=== PATIENT | male | born 1980 | race Caucasian/White ===

== ENCOUNTER 2021-04-09 08:10 | Outpatient (CLI) | payer OTHER, SELFPAY ==
[2021-04-09 08:56] LABS: Basophils Absolute Auto 0.1 K/mm3 (0.0-0.1); Basophils Percent Auto 0.7 % (0.2-1.2); Eosinophils Absolute Auto 0.3 K/mm3 (0-0.3); Hematocrit 47.6 % (42.0-52.0); Hemoglobin 16.2 g/dL (14.0-18.0); Immature Granulocyte Absolute 0.01 K/mm3 (0.00-0.031); Immature Granulocyte Percent A 0.1 % (0-0.5); Lymphocytes Absolute Auto 3.01 K/mm3 (0.9-3.2); Lymphocytes Percent Auto 41.1 % (18.3-44.2); Mean Corpuscular Hemoglobin 29.6 pg (26-34); Mean Corpuscular Volume 86.9 fl (80-100); Mean Platelet Volume 10.4 fl (7.4-10.4); Monocytes Absolute Auto 0.6 K/mm3 (0.1-0.6); Monocytes Percent Auto 8.6 % (2.6-8.5); Neutrophils Absolute Auto 3.3 K/mm3 (1.3-6.7); Neutrophils Percent Auto 45.5 % (45.5-73.1); Platelet Count Result 251 k/mm3 (150-375); Red Blood Count 5.48 M/mm3 (4.6-6.20); Red Cell Distribution Width 12.9 % (11.5-14.5); White Blood Count 7.3 K/mm3 (4.5-10.0)
[2021-04-09 09:15] LABS: Alanine Aminotransferase 60 U/L (4-50); Albumin Level 4.5 g/dL (3.5-5.1); Alkaline Phosphatase 96 U/L (38-126); Anion Gap 12 mmol/L (8-16); Aspartate Amino Transferase 35 U/L (17-59); Bilirubin,Total 1.1 mg/dL (0.2-1.3); Blood Urea Nitrogen 16 mg/dL (9-20); Calcium 9.3 mg/dL (8.4-10.2); Carbon Dioxide 25 mmol/L (22-30); Chloride 103 mmol/L (98-107); Cholesterol 264 mg/dL (0-200); Estimated Glomerular Filt Rate > 60; Glucose 100 mg/dL (75-110); HDL Direct 58 mg/dL; Sodium 140 mmol/L (137-145); Triglycerides 112 mg/dL (<150)
[2021-04-09 09:26] LABS: LDL Cholesterol Direct 140 mg/dL
== END 2021-04-09 08:11 | disposition home or self-care (01) ==
LOC: ANHLAB 08:13
PROVIDERS: PCP Family Medicine; Visit Provider Family Medicine
DX: E78.5 Hyperlipidemia, unspecified (principal); I10 Essential (primary) hypertension; R53.83 Other fatigue
CPT/HCPCS: 36415; 80053; 80061; 84443; 85025

== ENCOUNTER 2023-05-12 13:21 | Emergency (ER) | payer OTHER, SELFPAY ==
--- NOTE | 2023-05-12 13:26 | ED.EYEPROB ---
HPI - Eye Problem General Stated complaint: right eye irritation Time Seen by Provider: 05/12/23 13:26 Source: patient Mode of arrival: ambulatory Limitations: no limitations History of Present Illness HPI Narrative: Patient is a 42-year-old male who presents with right eye irritation that started 1 week ago. Per patient noticed bump on white part of his eye today waking up. Patient denies any pain but does report it is very irritated and causes his eyes to water. Denies any trauma or obvious foreign body in eye. Has not taken anything for symptoms or used any eyedrops. Related Data Home Medications Medication Instructions Recorded Confirmed amlodipine 5 mg tablet mg 05/12/23 Allergies Allergy/AdvReac Type Severity Reaction Status Date / Time shellfish derived Allergy Anaphylaxis Verified 05/12/23 13:43 Review of Systems Review of Systems: All systems reviewed & are unremarkable except as noted in HPI and below Constitutional: Constitutional: Denies body ache(s), Denies fever(s), Denies headache(s), Denies malaise and Denies weakness Eyes: Eyes: Reports blurry vision, Reports eye discharge, Reports irritation, Reports itchy eyes, Denies loss of vision and Reports eye pain ENT: Denies otalgia, Denies headache(s), Denies nasal discharge, Denies sinus pain and Denies sore throat Cardiovascular: Cardiovascular: Denies chest pain, Denies irregular heart rhythm and Denies dyspnea Respiratory: Respiratory: Denies dyspnea Gastrointestinal: Gastrointestinal: Denies abdominal pain, Denies diarrhea, Denies nausea and Denies vomiting Musculoskeletal: Musculoskeletal: Denies back pain, Denies myalgias and Denies arthralgias Integumentary/Breasts: Skin/Breast: Denies pruritus and Denies rash Neurologic: Denies headache(s), Denies loss of vision and Denies weakness Psychiatric: Psychiatric: Reports no additional psychiatric complaints Allergic/Immunologic: Allergic/Immunologic: Reports itchy eyes PMFSH Social History Social History Alcohol intake: never Comments At time of signature, agree with nursing past medical, surgical, social and family history. There is no relevant family history pertinent to the presenting complaint. Exam Const: General: cooperative, healthy appearing, comfortable, no acute distress and well nourished Nutritional Appearance: well nourished Orientation/consciousness: patient oriented x3 Limitations: no limitations HENMT: Head: normal to inspection, normocephalic and atraumatic Ears: external ears normal Face/Nose/Sinus: Normal external nose present, normal facial exam and face symmetric Face and sinus: normal facial exam and face symmetric Mouth: Yes lip normal Eyes: General: appearance normal, both eyes and all related structures Visual Lang: normal visual lang by confrontation Alignment and Position: alignment normal and position normal Periorbital: periorbital findings normal Eyelids: eyelid abnormality right upper eyelid erythema and swelling and right lower eyelid erythema and swelling Conjunctivae: conjunctival abnormality right conjunctival injection diffuse Sclera: scleral abnormality right scleral injection diffuse Pupils: Equal, round and reactive pupils present EOM: EOMs intact bilaterally Direct Ophthalmoscopy: no photophobia Other: No hyphema, no foreign body under the lids. Neck: Neck: normal visual inspection, full ROM, no lymphadenopathy and no meningeal signs Chest: Chest palpation & inspection: normal inspection of the chest Resp: Effort & Inspection: normal respiratory effort and able to speak in complete sentences Auscultation: clear to auscultation bilaterally Cardio: Rate: regular rate Rhythm: regular rhythm Heart sounds: S1 normal heart sound present and S2 normal heart sound present GI: Inspection: normal to inspection Skin: General skin exam: normal color and no rashes or lesions noted Neuro: General: patient oriented x3, mo
[2023-05-12 13:32] VITALS: BP 153/80; PULSE 85; RESP 16; TEMP 36.9; O2SAT 98
== END 2023-05-12 13:56 | disposition home or self-care (01) ==
PROVIDERS: Emergency Provider Nurse Practitioner Family; PCP Family Medicine
DX: H11.151 Pinguecula, right eye (principal); I10 Essential (primary) hypertension
CPT/HCPCS: 99212; G0463

== ENCOUNTER 2025-02-03 10:08 | Emergency (ER) | payer OTHER, SELFPAY ==
--- NOTE | 2025-02-03 10:09 | ED.UPPEXIN ---
HPI - Extremity Injury (Upper) General Chief Complaint: Extremity Problem,Nontraumatic Stated Complaint: left upper arm pain Time Seen by Provider: 02/03/25 10:09 Source: patient Mode of arrival: ambulatory Limitations: no limitations History of Present Illness HPI narrative: Patient is a 44-year-old male that presents with with left upper arm which pain for several days. Patient states that this tender on palpation use. Denies any injury , bruising or redness, numbness tingling or weakness. Related Data Home Medications ?Medication ?Instructions ?Recorded ?Confirmed ?Last Taken ?Type amlodipine 5 mg tablet 5 mg PO DAILY 05/12/23 02/03/25 Unknown History rosuvastatin 10 mg tablet 10 mg PO DAILY 02/03/25 02/03/25 Unknown History Allergies Allergy/AdvReac Type Severity Reaction Status Date / Time shellfish derived Allergy Anaphylaxis Verified 02/03/25 10:28 Review of Systems Review of Systems: All systems reviewed & are unremarkable except as noted in HPI and below Constitutional: Constitutional: Denies body ache(s), Denies chills, Denies fatigue, Denies fever(s), Denies headache(s), Denies malaise and Denies weakness Eyes: Eyes: Denies blurry vision, Denies irritation and Denies loss of vision ENT: Denies otalgia, Denies headache(s), Denies nasal discharge, Denies sinus pain and Denies sore throat Cardiovascular: Cardiovascular: Denies chest pain, Denies irregular heart rhythm and Denies dyspnea Respiratory: Respiratory: Denies dyspnea Gastrointestinal: Gastrointestinal: Denies abdominal pain, Denies melena, Denies hematochezia, Denies diarrhea, Denies nausea and Denies vomiting Musculoskeletal: Musculoskeletal: Denies back pain, Denies myalgias and Denies arthralgias Integumentary/Breasts: Skin/Breast: Denies pruritus and Denies rash Neurologic: Denies headache(s), Denies loss of vision and Denies weakness Psychiatric: Psychiatric: Reports no additional psychiatric complaints Endocrine: Endocrine: Denies fatigue PMFSH Social History Social History Alcohol intake: never Comments At time of signature, agree with nursing past medical, surgical, social and family history. There is no relevant family history pertinent to the presenting complaint. Exam Const: General: cooperative, healthy appearing, comfortable, no acute distress and well nourished Nutritional Appearance: well nourished Orientation/consciousness: patient oriented x3 Limitations: no limitations HENMT: Head: normal to inspection, normocephalic and atraumatic Ears: hearing grossly normal bilaterally and external ears normal Face/Nose/Sinus: Normal external nose present, normal facial exam and face symmetric Face and sinus: normal facial exam and face symmetric Mouth: Yes lip normal Eyes: General: appearance normal, both eyes and all related structures Alignment and Position: alignment normal and position normal Periorbital: periorbital findings normal Eyelids: eyelids normal Pupils: Equal, round and reactive pupils present EOM: EOMs intact bilaterally Neck: Neck: normal visual inspection, full ROM and supple Chest: Chest palpation & inspection: normal inspection of the chest Resp: Effort & Inspection: normal respiratory effort and able to speak in complete sentences Auscultation: clear to auscultation bilaterally Cardio: Rate: regular rate Rhythm: regular rhythm Heart sounds: S1 normal heart sound present and S2 normal heart sound present GI: Inspection: normal to inspection Skin: General skin exam: normal color and no rashes or lesions noted Neuro: General: patient oriented x3 and moves all extremities Cranial nerves: Yes Equal, round and reactive pupils present Speech: normal speech Gait exam (Neuro): Normal gait present Extrem: General: normal to inspection, full ROM and no edema Left upper extremity: full ROM, normal capillary refill, shoulder/upper arm tenderness of the mid-shaft humerus (anterior, medial aspect), axillary nerve sensory function normal and normal ROM; no swelling, no ecchymosis and no deformity and elbow/forearm normal to inspection and normal ROM Shoulder/upper arm images:  1. tenderness on palpation, no ecchymosis or bruising. Full strength and distal pulses intact. area of denser tissue palpated that may be scar tissue from previous surgery or inflammation. Psych: Appearance: grossly normal and well kempt Mental Status: mental status grossly normal Speech and movement: Normal speech and movement present Affect: normal affect Attitude: cooperative Thought process: Normal thought process present Course Course Emergency Course: Patient is aware of diagnosis, understands and agrees to treatment plan. Anticipatory guidance given. Patient agrees to follow-up as directed and is aware of reasons to seek care at the emergency department. Portions of this record may have been created with voice recognition software Level of Care: Express Care Visit Vital Signs Vital signs: Vital Signs Temperature 36.3 C L 02/03/25 10:19 Pulse Rate 81 02/03/25 10:19 Respiratory Rate 16 02/03/25 10:19 Blood Pressure 139/78 02/03/25 10:19 Pulse Oximetry 100 02/03/25 10:19 Oxygen Delivery Room Air 02/03/25 10:19 Temperature 36.3 C L 02/03/25 10:19 Pulse Rate 81 02/03/25 10:19 Respiratory Rate 16 02/03/25 10:19 Blood Pressure 139/78 02/03/25 10:19 Pulse Oximetry 100 02/03/25 10:19 Oxygen Delivery Room Air 02/03/25 10:19 Reviewed MDM - Extremity Injury (Upper) MDM Narrative Medical decision making narrative: Discussed patient's concern blood clot or tendon/ligament tear. Reassured patient that there is little suspicion for either 1 as he has full strength and no pain with movement and there is no redness, swelling or warmth to upper arm. Discussed following up with PCP for further workup if not improving. Pt well hydrated appearing, in no respiratory distress, hemodynamically stable. Recommend supportive care. The patient is stable at time of discharge the clinical impression was discussed and the patient was given the opportunity to ask questions, which were addressed as completely as possible given the information available at present. Anticipatory guidance and return to care precautions were discussed and the importance of primary care follow-up was stressed and encouraged. The patient voiced understanding of the plan, indications to return, and the need for follow-up. Exam findings show no acute concerns or changes Patient is appropriate for outpatient treatment and follow-up. Differential Diagnosis Differential diagnosis: Likely other (Scar tissue, inflammation, venous calcification. Less likely tendon/ligament tear or DVT) Medical Records Attestation: I reviewed the patient's medical records. Discharge Plan Discharge Clinical Impression: Upper arm pain Qualifiers: Laterality: left Qualified Code(s): M79.622 - Pain in left upper arm Patient Disposition: Home Condition: Stable Instructions: Arm Pain (ED) Additional Instructions: For pain, you may take: Tylenol 650-1000mg by mouth every 4-6 hours. Do not exceed 4000mg in 24 hours. Advil (Ibuprofen) 600 mg by mouth every 6 hours. Do not exceed 2400mg in 24 hours. 8 AM: Tylenol 11 AM: Ibuprofen 2 PM: Tylenol 5 PM: Ibuprofen 8 PM: Tylenol 11 PM: Ibuprofen 2 AM: Tylenol 5 AM: Ibuprofen Use warm compresses, 20 minutes on, 20 minutes off Follow-up with PCP as needed for additional workup if symptoms persist. If you have any increased pain, weakness, tingling go to the emergency department Patient Language: [place]ian Prescriptions: No Action amlodipine 5 mg tablet 5 mg PO DAILY rosuvastatin 10 mg tablet 10 mg PO DAILY Follow-up/Referrals: Cole,Sondra Callahan, SOHAM [Primary Care Provider] - 3 Days Time of Disposition: 10:55
[2025-02-03 10:19] VITALS: BP 139/78; PULSE 81; RESP 16; TEMP 36.3; O2SAT 100
== END 2025-02-03 10:58 | disposition home or self-care (01) ==
PROVIDERS: Emergency Provider Nurse Practitioner Family; PCP Nurse Practitioner
DX: M79.622 Pain in left upper arm (principal); I10 Essential (primary) hypertension; E78.00 Pure hypercholesterolemia, unspecified
CPT/HCPCS: 99211; G0463

== ENCOUNTER 2025-09-19 10:53 | Outpatient (CLI) | payer OTHER, SELFPAY ==
--- NOTE | ~2025-09-19 | US_ITS ---
ULTRASOUND ABDOMEN LIMITED (RIGHT UPPER QUADRANT) Clinical History: Abnormal liver enzymes Comparison: None Technique: Right upper quadrant sonography Findings: Liver: Normal size. Normal echotexture. No intrahepatic biliary ductal dilatation. Normal hepatopedal flow main portal vein. Common Duct: Normal caliber. 4 mm. Gallbladder: No stones. No wall thickening. No pericholecystic fluid. Pancreas: Mostly obscured by bowel gas. Right kidney: Unremarkable. Retrohepatic IVC: Unremarkable. IMPRESSION: 1. No acute findings. Reviewed, dictated and finalized at location [facility] IMPRESSION: 1. No acute findings.
== END 2025-09-19 10:54 | disposition home or self-care (01) ==
LOC: MICIMG 10:54
PROVIDERS: PCP Nurse Practitioner; Visit Provider Nurse Practitioner
DX: R74.8 Abnormal levels of other serum enzymes (principal); R79.89 Other specified abnormal findings of blood chemistry
CPT/HCPCS: 76705